=== PATIENT | male | born 1970 | race African-American/Black ===

== ENCOUNTER 2016-12-17 12:54 | Emergency (ER) | payer MEDICAID, OTHER ==
[2016-12-17 13:25] VITALS: BP 115/81
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
[2016-12-17] MEDS ORDERED: Ibuprofen TAB* 400 MG PO ONE (16:20)
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
== END 2016-12-17 17:27 | disposition home or self-care (01) ==
LOC: UCEAST 12:54
DX: M54.5 Low back pain (principal); F17.210 Nicotine dependence, cigarettes, uncomplicated
CPT/HCPCS: 72110; 99202; A9270-GY; G0463